=== PATIENT | male | born 1995 ===

== ENCOUNTER 2016-10-10 19:08 | Emergency (ER) | payer BC ==
[2016-10-10 19:29] VITALS: BP 123/70; PULSE 111; RESP 18; TEMP 98.1; O2SAT 98
--- NOTE | 2016-10-10 20:51 | ED PDOC ---
HPI: Back Time Seen by Provider: 10/10/16 19:55 Chief Complaint (Nursing): Back Pain History Per: Patient Additional Complaint(s): Pt. states for the past 3 weeks she's had atraumatic non-radiating neck pain. Reports that on Tuesday pain became worse therefore he went to [facility] [place] he was prescribed Naproxen and Metaloxone which he has taken with moderate relief. Pt. states no diagnostics were performed and is now requesting imaging to be done on his neck. Denies numbness, tingling, fever, headache, rash, trauma, sore throat. 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 Past Medical History Reviewed: Historical Data, Nursing Documentation, Vital Signs Vital Signs: Last Vital Signs Temp 98.1 F 10/10/16 19:23 Pulse 111 H 10/10/16 19:23 Resp 18 10/10/16 19:23 BP 123/70 10/10/16 19:23 Pulse Ox 98 10/10/16 19:23 - Medical History PMH: Asthma, Seizures (no meds) - Family History Family History: States: Unknown Family Hx - Immunization History Hx Tetanus Toxoid Vaccination: No Hx Influenza Vaccination: No Hx Pneumococcal Vaccination: No - Home Medications Home Medications: Ambulatory Orders Medication Instructions Recorded Albuterol HFA [Ventolin HFA 90 200 puff IH PRN PRN 06/09/13 mcg/actuation (8 g)] - Allergies Allergies/Adverse Reactions: Allergies Allergy/AdvReac Type Severity Reaction Status Date / Time Penicillins AdvReac RASH Verified 10/10/16 19:31 shellfish derived AdvReac SHORTNESS Verified 10/10/16 19:31 OF BREATH Review of Systems ROS Statement: Except As Marked, All Systems Reviewed And Found Negative Musculoskeletal: Positive for: Neck Pain Physical Exam - Physical Exam Appears: Positive for: Well, Non-toxic, No Acute Distress Head Exam: Positive for: ATRAUMATIC, NORMAL INSPECTION, NORMOCEPHALIC Skin: Positive for: Normal Color, Warm. Negative for: Rash ENT: Positive for: Normal ENT Inspection. Negative for: Pharyngeal Erythema, Tonsillar Exudate, Tonsillar Swelling Neck: Positive for: Pain On Movement Of Neck Respiratory: Positive for: CNT, Normal Breath Sounds Pulses-Radial (L): 2+ Pulses-Radial (R): 2+ Back: Positive for: Normal Inspection, Muscle Spasm (b/l paracervical muscle spasm). 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 Negative for: Aphasia, Facial Droop - ECG O2 Sat by Pulse Oximetry: 98 - Radiology X-Ray: Interpreted by Me (C-spine x-ray) X-Ray Interpretation: Other (C-spine straightening; no fx) - Progress ED Course And Treament: Toradol 15mg IM given. Pt. is driving home. Pt. informed of x-ray results. Instructed to f/u with pain management physician. Given grocery store clerk information. Told to continue Naproxen and Metaloxone and to apply ice to area 20 mins on and 20 mins off. Disposition - Clinical Impression Clinical Impression: Neck pain - Patient ED Disposition Is Patient to be Admitted: No - Disposition Referrals: Clinical Education Academic Coordinator Service [Outside] Disposition: Routine/Home Disposition Time: 20:50 Condition: STABLE Instructions: Muscle Spasm (ED) Forms: [employer] ([place]), [facility] ED School/Work Excuse Print Language: VIETNAMESE
--- NOTE | 2016-10-11 11:05 | RAD ---
PROCEDURE: Cervical Spine Radiographs. Three views of the cervical spine performed. Note that the examination is somewhat limited due to partial obscuration of the distal tip of the odontoid by overlying occiput in the open-mouth projection HISTORY: Pain. COMPARISON: None. FINDINGS: BONES: No evidence of acute compression fractures no retropulsed fragments. Vertebral bodies exhibit normal stature. . There is straightening of the normal cervical lordosis which could be due to patient positioning in the gantry however underlying element of muscle spasm may contribute. Disc space heights are relatively maintained DISC SPACES: There does appear to be small marginal on posterior osteophyte formation seen at several levels. . SOFT TISSUES: Prevertebral soft tissues unremarkable. OTHER FINDINGS: Questionable unerupted tooth within mandibular symphysis. Followup nonemergent CT scan of the mandible could be performed for further evaluation IMPRESSION: No acute fractures. Questionable unerupted tooth within the mandibular symphysis region. But nonemergent CT scan of the mandible recommended. Note this report was placed in PA review folder for followup.
== END 2016-10-10 22:12 | disposition home or self-care (01) ==
LOC: H.ER 19:08
DX: M54.2 Cervicalgia (principal)
CPT/HCPCS: 72040; 96372; 99281; J1885

== ENCOUNTER 2016-11-06 20:56 | Emergency (ER) | payer BC ==
[2016-11-06 21:07] VITALS: BP 137/73; PULSE 99; TEMP 98.3; O2SAT 98
[2016-11-06 21:23] VITALS: RESP 14
[2016-11-06] MEDS ORDERED: Alum-Mag Hydrox-Simethicone Susp (30 mL) PO STA (21:57)
[2016-11-06] MEDS ORDERED: Sodium Chloride 0.9% 1,000 ML IV STA (21:58)
[2016-11-06 22:34] LABS: HEMOGLOBIN 13.6 g/dL (12.0-18.0); MEAN CELL VOLUME 87.5 fl (80.0-94.0); MEAN CORPUSCULAR HEMOGLOBIN 30.3 pg (27.0-31.0); MEAN CORPUSCULAR HGB CONC 34.6 g/dL (33.0-37.0); RBC 4.49 Mil/uL (4.40-5.90); RED CELL DISTRIBUTION WIDTH 13.1 % (11.5-14.5)
[2016-11-06] MEDS ORDERED: Alum-Mag Hydrox-Simethicone Susp (30 mL) ONE (22:38)
[2016-11-06 22:45] LABS: ALB/GLOB RATIO 1.6 (1.0-2.1); ALBUMIN 4.5 g/dL (3.5-5.0); ALT/SGPT 67 U/L (21-72); AST/SGOT 41 U/L (17-59); BLOOD UREA NITROGEN 14 mg/dl (9-20); CALCIUM 9.8 mg/dL (8.4-10.2); GFR AFRICAN-AMERICAN > 60; GFR NON-AFRICAN AMERICAN > 60
--- NOTE | 2016-11-07 00:15 | ED PDOC ---
HPI: Chest Pain Time Seen by Provider: 11/06/16 21:18 Chief Complaint (Nursing): Shortness Of Breath Chief Complaint (Provider): Chest pain, central and left History Per: Patient History/Exam Limitations: no limitations Onset/Duration Of Symptoms: Days (2) Context: Food Severity: Moderate Pain Scale Rating Of: 5 Quality: Dull Associated Symptoms: denies: Nausea, Dyspnea, Diaphoresis, Syncope Modifying Factors: None Exacerbating Factors: Movement Alleviating Factors: None Additional Complaint(s): Pt states he began having central dull chest pain after eating pork, beans and rice. Pt states he had some cecil eloy last night before bed but it did not help. No fever/chills. PT states today he began having it more left sided in the chest muscle but states that it is still dull in the center area. No medications at home for symptoms. Pt obese with a sedentary life style. 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 Past Medical History Reviewed: Historical Data, Nursing Documentation, Vital Signs Vital Signs: Last Vital Signs Temp 98.3 F 11/06/16 21:02 Pulse 99 H 11/06/16 21:02 Resp 14 11/06/16 21:21 BP 137/73 11/06/16 21:02 Pulse Ox 98 11/06/16 21:02 - Medical History PMH: Asthma, Seizures (no meds) - Surgical History Surgical History: No Surg Hx - Family History Family History: States: Unknown Family Hx - Living Arrangements Living Arrangements: With Family - Social History Current smoker - smoking cessation education provided: No Alcohol: None Drugs: Denies - Immunization History Hx Tetanus Toxoid Vaccination: No Hx Influenza Vaccination: No Hx Pneumococcal Vaccination: No - Home Medications Home Medications: Ambulatory Orders Medication Instructions Recorded Albuterol HFA [Ventolin HFA 90 200 puff IH PRN PRN 06/09/13 mcg/actuation (8 g)] Cyclobenzaprine [Cyclobenzaprine 10 mg PO Q8H PRN #12 tab 11/07/16 HCl] Famotidine [Pepcid] 20 mg PO BID #28 tab 11/07/16 - Allergies Allergies/Adverse Reactions: Allergies Allergy/AdvReac Type Severity Reaction Status Date / Time Penicillins AdvReac RASH Verified 10/10/16 19:31 shellfish derived AdvReac SHORTNESS Verified 10/10/16 19:31 OF BREATH LITO Risk Score for UA/NSTEMI - LITO Risk Score Age > 64: NO 3 or more CAD Risk Factors: NO Known CAD (Stenosis greater than 50%): NO Aspirin use in past 7 days: NO Severe Angina: NO EKG ST changes greater than 0.5mm: NO Positive Cardiac Marker: NO LITO Score: 0 Risk %: 5% Curb-65 Severity Score - CURB-65 Severity Score Confusion: No Bun >19mg/dl (>7mmol/L): No Respiratory Rate greater than/equal to 30: No Systolic BP <90 or Diastolic BP less than/equal 60mmHg: No Age >64: No Curb-65 Score: 0 Percentage 30-day mortality: 0.6% Review of Systems ROS Statement: Except As Marked, All Systems Reviewed And Found Negative Constitutional: Negative for: Fever, Chills Cardiovascular: Positive for: Chest Pain. Negative for: Orthopnea, Edema, Light Headedness Respiratory: Negative for: Shortness of Breath Gastrointestinal: Negative for: Nausea, Vomiting, Abdominal Pain Physical Exam - Reviewed Nursing Documentation Reviewed: Yes Vital Signs Reviewed: Yes - Physical Exam Appears: Positive for: Well, Non-toxic, No Acute Distress Head Exam: Positive for: ATRAUMATIC, NORMAL INSPECTION, NORMOCEPHALIC Skin: Positive for: Normal Color, Warm, DRY Eye Exam: Positive for: Normal appearance ENT: Positive for: Normal ENT Inspection Neck: Positive for: Normal, Painless ROM Cardiovascular/Chest: Positive for: Regular Rate, Rhythm. Negative for: Chest Non Tender (Left sided tenderness ) Respiratory: Positive for: Normal Breath Sounds. Negative for: Accessory Muscle Use, Respiratory Distress Gastrointestinal/Abdominal: Positive for: Normal Exam, Bowel Sounds, Soft. Negative for: Tenderness Back: Positive for: Normal Inspection Extremity: Positive for: Normal ROM Neurologic/Psych: Positive for: Alert, Oriented - Laboratory Results Result Diagrams: 11/06/16 22:30 11/06/16 22:30 - ECG O2 Sat by Pulse Oximetry: 98 Medical Decision Making Medical Decision Making: Pt reports feeling much better after pepcid and mylanta. Pt states has left chest wall tenderness. Discussed heartburn and muscle pain with patient. Disposition - Clinical Impression Clinical Impression: Non-cardiac chest pain - Patient ED Disposition Is Patient to be Admitted: No Counseled Patient/Family Regarding: Diagnosis, Need For Followup - Disposition Disposition: Routine/Home Disposition Time: 00:10 Condition: GOOD Prescriptions: Cyclobenzaprine [Cyclobenzaprine HCl] 10 mg PO Q8H PRN #12 tab PRN Reason: Muscle Spasm Famotidine [Pepcid] 20 mg PO BID #28 tab Instructions: Noncardiac Chest Pain (ED)
--- NOTE | 2016-11-07 07:29 | RAD ---
HISTORY: Left sided chest pain COMPARISON: No prior. TECHNIQUE: Chest PA and lateral FINDINGS: LUNGS: No active pulmonary disease. PLEURA: No significant pleural effusion identified. No pneumothorax apparent. CARDIOVASCULAR: Normal. OSSEOUS STRUCTURES: No significant abnormalities. VISUALIZED UPPER ABDOMEN: Normal. OTHER FINDINGS: None. IMPRESSION: No active disease.
--- NOTE | 2016-11-07 12:58 | CARD ---
APPROVED REPORT EKG Measurement Heart [id number] <Conclusion> Normal sinus rhythm Normal ECG
== END 2016-11-07 00:47 | disposition home or self-care (01) ==
LOC: H.ER 20:56
DX: R12 Heartburn (principal); R07.89 Other chest pain; J45.909 Unspecified asthma, uncomplicated; Z88.0 Allergy status to penicillin
CPT/HCPCS: 71020; 80053; 84484; 85027; 85378; 93005; 96360; 99283; J7040

== ENCOUNTER 2016-12-20 19:04 | Emergency (ER) | payer BC ==
[2016-12-20 19:45] VITALS: PULSE 75; RESP 16; TEMP 98.2
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
[2016-12-20 20:32] LABS: ABG ALLEN TEST YES; ARTERIAL BLOOD GAS HCO3 26.1 mmol/L (21-28); ARTERIAL BLOOD GAS PH 7.43 (7.35-7.45); ARTERIAL BLOOD GAS PO2 78 mm/Hg (80-100)
[2016-12-20 21:46] VITALS: BP 125/80; O2SAT 100
--- NOTE | 2016-12-21 08:11 | CARD ---
APPROVED REPORT EKG Measurement Heart [id number] VT [id number] [id number] <Conclusion> Normal sinus rhythm with sinus arrhythmia Normal ECG
--- NOTE | 2016-12-21 13:39 | RAD ---
PROCEDURE: Radiographs of the pelvis. HISTORY: Pain. No history of recent/ related trauma provided COMPARISON: None. FINDINGS: BONES: Pelvic Bones: Unremarkable. Hips: Grossly unremarkable. JOINTS: Sacroiliac Joints: Unremarkable. Pubic Symphysis: Unremarkable. OTHER FINDINGS: None. IMPRESSION: No acute findings related to/accounting for the clinical presentation. Limitations of the current examination: AP view only.
--- NOTE | 2016-12-21 16:02 | RAD ---
PROCEDURE: Radiographs of the Lumbar Spine. HISTORY: ER ORDER COMPARISON: No prior. FINDINGS: BONES: Alignment appears satisfactory. No listhesis. No acute displaced fracture identified. DISC SPACES: Unremarkable. OTHER FINDINGS: None. IMPRESSION: No acute displaced fracture or subluxation identified.
== END 2016-12-20 21:47 | disposition home or self-care (01) ==
LOC: H.ER 19:04
DX: J70.5 Respiratory conditions due to smoke inhalation (principal); T59.811A Toxic effect of smoke, accidental (unintentional), initial encounter; J45.909 Unspecified asthma, uncomplicated; Z88.0 Allergy status to penicillin

== ENCOUNTER 2017-01-05 18:35 | Emergency (ER) | payer BC ==
[2017-01-05 18:55] VITALS: BP 157/94; PULSE 113; RESP 16; TEMP 99.4; O2SAT 98
[2017-01-05] MEDS ORDERED: Albuterol-Ipratrop 3 mg / 0.5 (3 ml) UD INH STA (19:25)
[2017-01-05] MEDS ORDERED: Albuterol-Ipratrop 3 mg / 0.5 (3 ml) UD ONE (19:32)
--- NOTE | 2017-01-05 19:32 | ED PDOC ---
HPI: CCC, URI, Sore Throat Time Seen by Provider: 01/05/17 19:14 Chief Complaint (Nursing): Cough, Cold, Congestion History Per: Patient History/Exam Limitations: no limitations Onset/Duration Of Symptoms: Days (3) Additional Complaint(s): Patient is a 21 y/o male with a past medical history of asthma presenting to the emergency department for a productive cough ongoing for 3 days with associated intermittent shortness of breath. Notes that he may have had a fever , stating that he felt "steaming" warmth from his neck up and "ice cold" from neck down. Denies pain, injuries, recent travel, or other complaints. PCP: none provided. Past Medical History Reviewed: Historical Data, Nursing Documentation, Vital Signs Vital Signs: Last Vital Signs Temp 99.4 F 01/05/17 18:51 Pulse 113 H 01/05/17 18:51 Resp 16 01/05/17 18:51 BP 157/94 H 01/05/17 18:51 Pulse Ox 98 01/05/17 19:35 - Medical History PMH: Asthma, Seizures (no meds) - Surgical History Other surgeries: Ankle surgery - Family History Family History: States: Unknown Family Hx - Social History Current smoker - smoking cessation education provided: No Ex-Smoker (has not smoked in the last 12 months): No Alcohol: Social Drugs: Denies - Immunization History Hx Tetanus Toxoid Vaccination: No Hx Influenza Vaccination: No Hx Pneumococcal Vaccination: No - Home Medications Home Medications: Ambulatory Orders Medication Instructions Recorded Albuterol HFA [Ventolin HFA 90 200 puff IH PRN PRN 06/09/13 mcg/actuation (8 g)] Cyclobenzaprine [Cyclobenzaprine 10 mg PO Q8H PRN #12 tab 11/07/16 HCl] Famotidine [Pepcid] 20 mg PO BID #28 tab 11/07/16 Albuterol HFA [Ventolin HFA 90 1 puff IH BID PRN #1 unit 01/05/17 mcg/actuation (8 g)] Azithromycin [Zithromax] 250 mg PO DAILY #6 tab 01/05/17 - Allergies Allergies/Adverse Reactions: Allergies Allergy/AdvReac Type Severity Reaction Status Date / Time Penicillins AdvReac RASH Verified 01/05/17 18:50 shellfish derived AdvReac SHORTNESS Verified 01/05/17 18:50 OF BREATH Review of Systems ROS Statement: Except As Marked, All Systems Reviewed And Found Negative Constitutional: Positive for: Fever (subjective) Respiratory: Positive for: Cough, Shortness of Breath, Sputum Physical Exam - Reviewed Nursing Documentation Reviewed: Yes Vital Signs Reviewed: Yes - Physical Exam Appears: Positive for: Well, Non-toxic, No Acute Distress Head Exam: Positive for: ATRAUMATIC, NORMAL INSPECTION, NORMOCEPHALIC Skin: Positive for: Normal Color, Warm, Dry Eye Exam: Positive for: Normal appearance ENT: Positive for: Normal ENT Inspection Neck: Positive for: Normal Extremity: Positive for: Normal ROM Neurologic/Psych: Positive for: Alert, Oriented (x3) - ECG O2 Sat by Pulse Oximetry: 98 (RA) Pulse Ox Interpretation: Normal Medical Decision Making Medical Decision Making: Time: 19:25 Initial impression: Cough Initial plan: Chest X-ray Albuterol 3 mL INH Peak flow assessment pre and post treatment CXR - Normal Scribe Attestation: Documented by Gale Felix, acting as a scribe for KAEL Maher. Provider Scribe Attestation: All medical record entries made by the Scribe were at my direction and personally dictated by me. I have reviewed the chart and agree that the record accurately reflects my personal performance of the history, physical exam, medical decision making, and the department course for this patient. I have also personally directed, reviewed, and agree with the discharge instructions and disposition. Disposition - Clinical Impression Clinical Impression: Cough - Patient ED Disposition Is Patient to be Admitted: No Counseled Patient/Family Regarding: Diagnosis, Need For Followup - Disposition Disposition: Routine/Home Disposition Time: 20:47 Condition: GOOD Prescriptions: Albuterol HFA [Ventolin HFA 90 mcg/actuation (8 g)] 1 puff IH BID PRN #1 unit PRN Reason: Wheezing Azithromycin [Zithromax] 250 mg PO DAILY #6 tab Instructions: Acute Cough (ED) Forms: [employer] ([place])
--- NOTE | 2017-01-06 09:33 | RAD ---
HISTORY: SOB, cough x 3 days COMPARISON: 11/06/2016 TECHNIQUE: Chest PA and lateral FINDINGS: LUNGS: No active pulmonary disease. PLEURA: No significant pleural effusion identified. No pneumothorax apparent. CARDIOVASCULAR: Normal. OSSEOUS STRUCTURES: No significant abnormalities. VISUALIZED UPPER ABDOMEN: Normal. OTHER FINDINGS: None. IMPRESSION: No active disease.
== END 2017-01-05 21:22 | disposition home or self-care (01) ==
LOC: H.ER 18:35
DX: R05 Cough (principal); R06.2 Wheezing

== ENCOUNTER 2017-10-21 20:06 | Emergency (ER) | payer BC ==
[2017-10-21 20:06] VITALS: BMI 45.8
[2017-10-21 20:16] VITALS: TEMP 98.4; O2SAT 97
[2017-10-21] MEDS ORDERED: Albuterol-Ipratrop 3 mg / 0.5 (3 ml) UD INH STA (20:55)
[2017-10-21] MEDS ORDERED: Albuterol-Ipratrop 3 mg / 0.5 (3 ml) UD ONE (21:02)
--- NOTE | 2017-10-21 21:27 | ED PDOC ---
HPI: SOB/CHF/COPD Time Seen by Provider: 10/21/17 20:23 Chief Complaint (Nursing): Shortness Of Breath Chief Complaint (Provider): Cough, shortness of breath History Per: Patient History/Exam Limitations: no limitations Onset/Duration Of Symptoms: Persistent Current Symptoms Are (Timing): Still Present Additional History Per: Patient Additional Complaint(s): 22yo male, with history of asthma, comes to ER for evaluation of cough and shortness of breath x 1 month. Patient states cough is productive with occasional blood tinged phlegm; he reports associated sore throat but denies any rhinorrhea. Patient has been using Albuterol frequently for the past 3 weeks with no relief. He reports presenting today because of worsening shortness of breath, cough, and difficulty sleeping secondary to the cough. He denies any fever, vomiting or diarrhea. PMD: Dr. Hagen Past Medical History Reviewed: Historical Data, Nursing Documentation, Vital Signs Vital Signs: Last Vital Signs Temp 98.4 F 10/21/17 20:12 Pulse 93 H 10/21/17 20:12 Resp 14 10/21/17 20:12 BP 125/80 10/21/17 20:12 Pulse Ox 97 10/21/17 21:36 - Medical History PMH: Asthma, Seizures (no meds) - Surgical History Other surgeries: left ankle surgery - Family History Family History: States: Unknown Family Hx - Social History Current smoker - smoking cessation education provided: No Alcohol: Social Drugs: Denies - Immunization History Hx Tetanus Toxoid Vaccination: No Hx Influenza Vaccination: No Hx Pneumococcal Vaccination: No - Home Medications Home Medications: Ambulatory Orders Medication Instructions Recorded Albuterol HFA [Ventolin HFA 90 200 puff IH PRN PRN 06/09/13 mcg/actuation (8 g)] Cyclobenzaprine [Cyclobenzaprine 10 mg PO Q8H PRN #12 tab 11/07/16 HCl] Famotidine [Pepcid] 20 mg PO BID #28 tab 11/07/16 Albuterol HFA [Ventolin HFA 90 1 puff IH BID PRN #1 unit 01/05/17 mcg/actuation (8 g)] Azithromycin [Zithromax] 250 mg PO DAILY #6 tab 01/05/17 Loperamide [Loperamide HCl] 2 mg PO QID PRN #12 cap 01/27/17 Albuterol HFA [Ventolin HFA 90 2 puff IH Q4H PRN #1 inh 10/21/17 mcg/actuation (8 g)] Azithromycin [Zithromax] 250 mg PO DAILY #6 dose 10/21/17 Prednisone 50 mg PO DAILY #4 tablet 10/21/17 - Allergies Allergies/Adverse Reactions: Allergies Allergy/AdvReac Type Severity Reaction Status Date / Time Penicillins AdvReac RASH Verified 10/21/17 20:12 shellfish derived AdvReac SHORTNESS Verified 10/21/17 20:12 OF BREATH Review of Systems ROS Statement: Except As Marked, All Systems Reviewed And Found Negative (as per HPI) Constitutional: Negative for: Fever, Chills Respiratory: Positive for: Cough, Shortness of Breath, SOB with Exertion, Sputum Gastrointestinal: Negative for: Vomiting, Diarrhea Physical Exam - Reviewed Nursing Documentation Reviewed: Yes Vital Signs Reviewed: Yes - Physical Exam Appears: Positive for: Non-toxic, No Acute Distress Head Exam: Positive for: ATRAUMATIC, NORMOCEPHALIC Skin: Positive for: Warm, Dry Eye Exam: Positive for: EOMI, PERRL ENT: Negative for: Pharyngeal Erythema, Tonsillar Exudate Neck: Positive for: Painless ROM, Supple Cardiovascular/Chest: Positive for: Tachycardia (+regular rhythm). Negative for : Murmur Respiratory: Positive for: Wheezing (end expitory wheeze), Other (speaking full sentences; +spasmostic cough). Negative for: Accessory Muscle Use, Respiratory Distress Gastrointestinal/Abdominal: Positive for: Soft. Negative for: Tenderness Back: Positive for: Normal Inspection. Negative for: Decreased ROM Extremity: Negative for: Pedal Edema, Calf Tenderness Lymphatic: Negative for: Adenopathy Neurologic/Psych: Positive for: Alert, Oriented. Negative for: Motor/Sensory Deficits - Laboratory Results Result Diagrams: 10/21/17 21:31 10/21/17 21:31 - ECG O2 Sat by Pulse Oximetry: 97 (RA) Pulse Ox Interpretation: Normal - Radiology X-Ray: Interpreted by Me (Peribronchial thickening, no effusion, no inf) Medical Decision Making Medical Decision Making: Impression: Cough, shortness of breath Differential: Including but not limited to asthma exacerbation, pneumonia, bronchitis, pulmonary embolism, CHF Plan: -- EKG -- Labs -- Chest x-ray -- Duonebm 9ml INH -- Solumedrol 125mg IV Labs unremarkable CXR with peribronchial thickening. Improved on discharge. Scribe Attestation: Documented by Nadine Ramsey, acting as a scribe for Beverley Valentin MD. Provider Scribe Attestation: All medical record entries made by the Scribe were at my direction and personally dictated by me. I have reviewed the chart and agree that the record accurately reflects my personal performance of the history, physical exam, medical decision making, and the department course for this patient. I have also personally directed, reviewed, and agree with the discharge instructions and disposition. Disposition - Clinical Impression Clinical Impression: Bronchitis, Asthma exacerbation - Disposition Referrals: Corinne Joseph MD [Staff Provider] - 10/24/17 Disposition: Routine/Home Disposition Time: 22:00 Condition: IMPROVED Prescriptions: Albuterol HFA [Ventolin HFA 90 mcg/actuation (8 g)] 2 puff IH Q4H PRN #1 inh PRN Reason: ASTHMA Azithromycin [Zithromax] 250 mg PO DAILY #6 dose Prednisone 50 mg PO DAILY #4 tablet Instructions: Asthma, Adult (DC), Acute Bronchitis Forms: [facility] (Lithuanian)
[2017-10-21 21:35] LABS: BASO # 0.1 K/uL (0.0-0.2); BASO % 0.6 % (0.0-2.0); EOS # 0.3 K/uL (0.0-0.7); EOS % 2.9 % (0.0-4.0); HEMOGLOBIN 14.1 g/dL (12.0-18.0); LYMPH # 3.2 K/uL (1.0-4.3); LYMPH % 28.9 % (20.0-40.0); MEAN CELL VOLUME 87.4 fl (80.0-94.0); MEAN CORPUSCULAR HEMOGLOBIN 30.3 pg (27.0-31.0); MEAN CORPUSCULAR HGB CONC 34.7 g/dL (33.0-37.0); MEAN PLATELET VOLUME 8.6 fl (7.2-11.7); MONO # 0.7 K/uL (0.0-0.8); MONO % 6.2 % (0.0-10.0); NEUT # 6.9 K/uL (1.8-7.0); NEUT % 61.4 % (50.0-75.0); RBC 4.66 Mil/uL (4.40-5.90); RED CELL DISTRIBUTION WIDTH 13.3 % (11.5-14.5); WHITE BLOOD COUNT 11.2 K/uL (4.8-10.8)
[2017-10-21 22:06] LABS: ALB/GLOB RATIO 1.6 (1.0-2.1); ALBUMIN 4.6 g/dL (3.5-5.0); ALT/SGPT 59 U/L (21-72); AST/SGOT 40 U/L (17-59); B-TYPE NATRIURETIC PEPTIDE 36.7 pg/ml (0-450); BLOOD UREA NITROGEN 14 mg/dl (9-20); CALCIUM 9.5 mg/dL (8.4-10.2); GFR AFRICAN-AMERICAN > 60; GFR NON-AFRICAN AMERICAN > 60
[2017-10-22 00:35] VITALS: BP 138/74; PULSE 92; RESP 17
--- NOTE | 2017-10-22 13:46 | CARD ---
APPROVED REPORT Date of service: 10/21/2017 EKG Measurement Heart [id number] <Conclusion> Normal sinus rhythm Moderate voltage criteria for LVH, may be normal variant Borderline ECG
--- NOTE | 2017-10-22 15:33 | RAD ---
Date of service: 10/21/2017 HISTORY: sob cough cp COMPARISON: 01/05/2017 TECHNIQUE: Chest PA and lateral FINDINGS: LUNGS: No active pulmonary disease. PLEURA: No significant pleural effusion identified. No pneumothorax apparent. CARDIOVASCULAR: Normal. OSSEOUS STRUCTURES: No significant abnormalities. VISUALIZED UPPER ABDOMEN: Normal. OTHER FINDINGS: None. IMPRESSION: No active disease.
== END 2017-10-21 23:08 | disposition home or self-care (01) ==
LOC: H.ER 20:06
DX: J45.901 Unspecified asthma with (acute) exacerbation (principal); J44.9 Chronic obstructive pulmonary disease, unspecified; Z88.0 Allergy status to penicillin
CPT/HCPCS: 71046; 80053; 83880; 84484; 85025; 85378; 87040; 93005; 94150; 94640; 96374; 99284; J2930

== ENCOUNTER 2017-12-30 21:12 | Emergency (ER) | payer BC ==
[2017-12-30 21:12] VITALS: BMI 45.8
[2017-12-30 21:43] VITALS: BP 133/101; PULSE 90; RESP 18; TEMP 99.2; O2SAT 98
[2017-12-30] MEDS ORDERED: Sodium Chloride 0.9% 1,000 ML IV STA (22:44)
--- NOTE | 2017-12-30 22:45 | ED PDOC ---
HPI: Abdomen Time Seen by Provider: 12/30/17 22:15 Chief Complaint (Nursing): Abdominal Pain Chief Complaint (Provider): left lower abdominal pain History Per: Patient (22 y/o male here with lower abd pain x 3 days left lower quadrant associated with constipation. Notes dark urine on initial episode of abd pain. Denies any fevers/chills.) Past Medical History Reviewed: Historical Data, Nursing Documentation, Vital Signs Vital Signs: Last Vital Signs Temp 99.2 F 12/30/17 21:36 Pulse 90 12/30/17 21:36 Resp 18 12/30/17 21:36 BP 133/101 H 12/30/17 21:36 Pulse Ox 98 12/30/17 21:36 - Medical History PMH: Asthma, Seizures (no meds) - Family History Family History: States: Unknown Family Hx - Immunization History Hx Tetanus Toxoid Vaccination: No Hx Influenza Vaccination: No Hx Pneumococcal Vaccination: No - Home Medications Home Medications: Ambulatory Orders Medication Instructions Recorded Albuterol HFA [Ventolin HFA 90 200 puff IH PRN PRN 06/09/13 mcg/actuation (8 g)] Cyclobenzaprine [Cyclobenzaprine 10 mg PO Q8H PRN #12 tab 11/07/16 HCl] Famotidine [Pepcid] 20 mg PO BID #28 tab 11/07/16 Albuterol HFA [Ventolin HFA 90 1 puff IH BID PRN #1 unit 01/05/17 mcg/actuation (8 g)] Azithromycin [Zithromax] 250 mg PO DAILY #6 tab 01/05/17 Loperamide [Loperamide HCl] 2 mg PO QID PRN #12 cap 01/27/17 Albuterol HFA [Ventolin HFA 90 2 puff IH Q4H PRN #1 inh 10/21/17 mcg/actuation (8 g)] Azithromycin [Zithromax] 250 mg PO DAILY #6 dose 10/21/17 Prednisone 50 mg PO DAILY #4 tablet 10/21/17 Ibuprofen [Motrin] 600 mg PO Q8 PRN #21 tab 12/31/17 - Allergies Allergies/Adverse Reactions: Allergies Allergy/AdvReac Type Severity Reaction Status Date / Time Penicillins AdvReac RASH Verified 10/21/17 20:12 shellfish derived AdvReac SHORTNESS Verified 10/21/17 20:12 OF BREATH Review of Systems ROS Statement: Except As Marked, All Systems Reviewed And Found Negative Physical Exam - Reviewed Nursing Documentation Reviewed: Yes Vital Signs Reviewed: Yes - Physical Exam Appears: Positive for: Well, Non-toxic, No Acute Distress Head Exam: Positive for: ATRAUMATIC, NORMAL INSPECTION, NORMOCEPHALIC Skin: Positive for: Normal Color, Warm, DRY Eye Exam: Positive for: EOMI, Normal appearance, PERRL ENT: Positive for: Normal ENT Inspection Neck: Positive for: Normal, Painless ROM Cardiovascular/Chest: Positive for: Regular Rate, Rhythm Respiratory: Positive for: CNT, Normal Breath Sounds Gastrointestinal/Abdominal: Positive for: Normal Exam, Soft Back: Positive for: Normal Inspection Extremity: Positive for: Normal ROM Neurologic/Psych: Positive for: Alert, Oriented - Laboratory Results Result Diagrams: 12/31/17 00:02 12/31/17 00:02 - ECG O2 Sat by Pulse Oximetry: 98 - Progress ED Course And Treament: ns [address] abd/pelvis: appendagitis. Disposition - Clinical Impression Clinical Impression: Epiploic appendagitis - Patient ED Disposition Is Patient to be Admitted: No - Disposition Disposition: Routine/Home Disposition Time: 03:12 Condition: FAIR Prescriptions: Ibuprofen [Motrin] 600 mg PO Q8 PRN #21 tab PRN Reason: Pain, Moderate (4-7) Instructions: Acute Abdomen (Belly Pain)
[2017-12-31 00:59] LABS: SQUAMOUS EPITHIAL 2 /hpf (0-5); URINE BACTERIA RARE (<OCC); URINE BILIRUBIN NEGATIVE (NEGATIVE); URINE BLOOD SMALL (NEGATIVE); URINE CLARITY SLIGHTY-CLOUDY (Clear); URINE COLOR YELLOW (YELLOW); URINE GLUCOSE (UA) NEG (Normal); URINE LEUKOCYTE ESTERASE NEG Leu/uL (Negative); URINE PROTEIN NEGATIVE (NEGATIVE); URINE UROBILINOGEN 0.2-1.0 mg/dL (0.2-1.0)
[2017-12-31 01:02] LABS: BASO % 0.4 % (0.0-2.0); EOS # 0.2 K/uL (0.0-0.7); EOS % 2.2 % (0.0-4.0); HEMOGLOBIN 14.6 g/dL (12.0-18.0); LYMPH % 43.1 % (20.0-40.0); MEAN CELL VOLUME 88.5 fl (80.0-94.0); MEAN CORPUSCULAR HEMOGLOBIN 30.3 pg (27.0-31.0); MEAN CORPUSCULAR HGB CONC 34.2 g/dL (33.0-37.0); MEAN PLATELET VOLUME 8.9 fl (7.2-11.7); MONO # 0.5 K/uL (0.0-0.8); MONO % 5.2 % (0.0-10.0); NEUT # 4.5 K/uL (1.8-7.0); NEUT % 49.1 % (50.0-75.0); RBC 4.81 Mil/uL (4.40-5.90); WHITE BLOOD COUNT 9.2 K/uL (4.8-10.8)
[2017-12-31 01:10] LABS: ALB/GLOB RATIO 1.4 (1.0-2.1); ALBUMIN 4.7 g/dL (3.5-5.0); ALT/SGPT 58 U/L (21-72); AST/SGOT 44 U/L (17-59); BLOOD UREA NITROGEN 13 mg/dl (9-20); CALCIUM 9.8 mg/dL (8.4-10.2); GFR NON-AFRICAN AMERICAN > 60
--- NOTE | 2017-12-31 11:27 | CT ---
Date of service: 12/31/2017 PROCEDURE: CT Abdomen and Pelvis without intravenous contrast HISTORY: r/o kidney stone left flank COMPARISON: None. TECHNIQUE: Contiguous images were obtained from the domes of the diaphragms to the upper thighs without the administration of intravenous contrast. Oral contrast was not administered. Radiation dose: Total exam DLP = 963.8 mGy-cm. This CT exam was performed using one or more of the following dose reduction techniques: Automated exposure control, adjustment of the mA and/or kV according to patient size, and/or use of iterative reconstruction technique. FINDINGS: LOWER THORAX: Unremarkable. LIVER: Unremarkable. No gross lesion or ductal dilatation. GALLBLADDER AND BILE DUCTS: Unremarkable. PANCREAS: Unremarkable. No gross lesion or ductal dilatation. SPLEEN: Unremarkable. ADRENALS: Unremarkable. No mass. KIDNEYS AND URETERS: Unremarkable. No hydronephrosis. No solid mass. VASCULATURE: Unremarkable. No aortic aneurysm. BOWEL: Unremarkable. No obstruction. No gross mural thickening. APPENDIX: Unremarkable. Normal appendix. PERITONEUM: Left lower quadrant pole shaped area of high density with internal low density and surrounding inflammatory change. No free fluid. No free air. LYMPH NODES: Unremarkable. No enlarged lymph nodes. BLADDER: Unremarkable. REPRODUCTIVE: Unremarkable. BONES: No acute fracture. OTHER FINDINGS: None. IMPRESSION: Left lower quadrant epiploic appendagitis. No urolithiasis or evidence of recently passed genitourinary calculus.
== END 2017-12-31 03:53 | disposition home or self-care (01) ==
LOC: H.ER 21:12
DX: Q43.8 Other specified congenital malformations of intestine (principal); K59.00 Constipation, unspecified; Z88.0 Allergy status to penicillin

== ENCOUNTER 2018-02-13 18:43 | Emergency (ER) | payer BC ==
[2018-02-13 18:43] VITALS: BMI 45.8
[2018-02-13 18:56] VITALS: O2SAT 98
[2018-02-13 19:53] LABS: BASO % 0.4 % (0.0-2.0); EOS # 0.1 K/uL (0.0-0.7); EOS % 2.1 % (0.0-4.0); HEMOGLOBIN 14.5 g/dL (12.0-18.0); LYMPH # 2.3 K/uL (1.0-4.3); LYMPH % 33.8 % (20.0-40.0); MEAN CELL VOLUME 88.5 fl (80.0-94.0); MEAN CORPUSCULAR HEMOGLOBIN 29.7 pg (27.0-31.0); MEAN CORPUSCULAR HGB CONC 33.5 g/dL (33.0-37.0); MEAN PLATELET VOLUME 8.7 fl (7.2-11.7); MONO # 0.5 K/uL (0.0-0.8); MONO % 7.2 % (0.0-10.0); NEUT # 3.9 K/uL (1.8-7.0); NEUT % 56.5 % (50.0-75.0); NRBC % 0.1 % (0.0-0.0); RBC 4.89 Mil/uL (4.40-5.90); RED CELL DISTRIBUTION WIDTH 13.3 % (11.5-14.5); WHITE BLOOD COUNT 6.8 K/uL (4.8-10.8)
--- NOTE | 2018-02-13 20:16 | ED PDOC ---
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 Patient reports he had an episode while driving of what he described as his heart thumping which was followed by a split second episode of blacking out. At the time, he was able to hide puller and change driers with his who was with him. He denies LOC or any initial shortness of breath. Patient states he also floaters but all symptoms have resolved since arrival to ED. He also reports intermittent calf pain for the past few weeks. Patient is denying any stressors or anxiety but reports he spent the better part of his day at the doctors for his fatty liver. PMD: Corinne Past Medical History Reviewed: Historical Data, Nursing Documentation, Vital Signs Vital Signs: Last Vital Signs Temp 98.3 F 02/13/18 18:54 Pulse 102 H 02/13/18 18:54 Resp 22 02/13/18 18:54 BP 139/81 02/13/18 18:54 Pulse Ox 98 02/13/18 18:54 - Medical History PMH: Asthma, Hypercholesterolemia, Seizures (no meds) Other PMH: fatty liver - Family History Family History: States: Unknown Family Hx - Social History Current smoker - smoking cessation education provided: No Ex-Smoker (has not smoked in the last 12 months): No Alcohol: None Drugs: Denies - Immunization History Hx Tetanus Toxoid Vaccination: No Hx Influenza Vaccination: No Hx Pneumococcal Vaccination: No - Home Medications Home Medications: Ambulatory Orders Medication Instructions Recorded Albuterol HFA [Ventolin HFA 90 200 puff IH PRN PRN 06/09/13 mcg/actuation (8 g)] Cyclobenzaprine [Cyclobenzaprine 10 mg PO Q8H PRN #12 tab 11/07/16 HCl] Famotidine [Pepcid] 20 mg PO BID #28 tab 11/07/16 Albuterol HFA [Ventolin HFA 90 1 puff IH BID PRN #1 unit 01/05/17 mcg/actuation (8 g)] Azithromycin [Zithromax] 250 mg PO DAILY #6 tab 01/05/17 Loperamide [Loperamide HCl] 2 mg PO QID PRN #12 cap 01/27/17 Albuterol HFA [Ventolin HFA 90 2 puff IH Q4H PRN #1 inh 10/21/17 mcg/actuation (8 g)] Azithromycin [Zithromax] 250 mg PO DAILY #6 dose 10/21/17 Prednisone 50 mg PO DAILY #4 tablet 10/21/17 Ibuprofen [Motrin] 600 mg PO Q8 PRN #21 tab 12/31/17 - Allergies Allergies/Adverse Reactions: Allergies Allergy/AdvReac Type Severity Reaction Status Date / Time Penicillins AdvReac RASH Verified 10/21/17 20:12 shellfish derived AdvReac SHORTNESS Verified 10/21/17 20:12 OF BREATH Review of Systems ROS Statement: Except As Marked, All Systems Reviewed And Found Negative Cardiovascular: Positive for: Palpitations Neurological: Positive for: Other (lightheadedness) Physical Exam - Reviewed Nursing Documentation Reviewed: Yes Vital Signs Reviewed: Yes - Physical Exam Appears: Positive for: No Acute Distress (obese) Head Exam: Positive for: ATRAUMATIC, NORMOCEPHALIC Skin: Positive for: Normal Color, Warm, Dry Eye Exam: Positive for: Normal appearance, EOMI, PERRL Cardiovascular/Chest: Positive for: Regular Rate, Rhythm. Negative for: Murmur Respiratory: Positive for: Normal Breath Sounds. Negative for: Respiratory Distress Gastrointestinal/Abdominal: Positive for: Normal Exam, Soft. Negative for: Tenderness Extremity: Positive for: Normal ROM (upper and lower). Negative for: Pedal Edema, Deformity Neurologic/Psych: Positive for: Alert, Oriented (x3) - Laboratory Results Result Diagrams: 02/13/18 19:49 02/13/18 22:46 - ECG O2 Sat by Pulse Oximetry: 98 (RA) Pulse Ox Interpretation: Normal Medical Decision Making Medical Decision Making: Time: 1916 Initial Impression: 22 yo with palpitations and near syncopal episode Initial Plan: --Labs --EKG --Head CT --Venous Doppler 21:39 Doppler US FINDINGS: DEEP VEINS: The common femoral, superficial femoral, and popliteal veins are echolucent and compressible. There is normal color Doppler flow throughout. The visualized calf veins appear patent. SUPERFICIAL VEINS: The visualized greater saphenous vein is patent. SOFT TISSUES: No popliteal fossa cyst or other abnormalities. IMPRESSION: No deep venous thrombosis evident on bilateral lower extremity examination. 21:[address] FINDINGS: BRAIN No acute intraparenchymal hemorrhage. No mass lesion. No CT evidence for acute territorial infarct. No midline shift or extra-axial collections. VENTRICLES: No hydrocephalus. ORBITS: The orbits are unremarkable. SINUSES AND MASTOIDS: The paranasal sinuses and mastoid air cells are clear. BONES: No fracture. SOFT TISSUES: Unremarkable. IMPRESSION: No acute intracranial abnormality. 23:40 Patient is stable for discharge home. Diagnosis is anxiety and palpitations. Patient was advised to follow up with PMD. Scribe Attestation: Documented by Mitzi Uriarte, acting as a scribe for Mp Herron MD Provider Scribe Attestation: All medical record entries made by the Scribe were at my direction and personally dictated by me. I have reviewed the chart and agree that the record accurately reflects my personal performance of the history, physical exam, medical decision making, and the department course for this patient. I have also personally directed, reviewed, and agree with the discharge instructions and disposition. Disposition - Clinical Impression Clinical Impression: Palpitations, Anxiety - Patient ED Disposition Is Patient to be Admitted: No - Disposition Disposition: Routine/Home Disposition Time: 23:40 Condition: STABLE Instructions: Palpitations, Anxiety, Adult (DC) Forms: [employer] (Pakistani)
[2018-02-13 23:04] LABS: ALB/GLOB RATIO 1.5 (1.0-2.1); ALBUMIN 4.7 g/dL (3.5-5.0); ALT/SGPT 62 U/L (21-72); AST/SGOT 47 U/L (17-59); BLOOD UREA NITROGEN 13 mg/dl (9-20); GFR NON-AFRICAN AMERICAN > 60
[2018-02-13 23:15] LABS: BARBITURATES, UR NEGATIVE (NEGATIVE); BENZODIAZEPINES, UR NEGATIVE (NEGATIVE); OPIATES, UR NEGATIVE (NEGATIVE); PHENCYCLIDINE, UR NEGATIVE (NEGATIVE)
[2018-02-14 06:11] VITALS: BP 118/73; PULSE 84; RESP 16; TEMP 98.2
--- NOTE | 2018-02-14 06:46 | CARD ---
APPROVED REPORT Date of service: 02/13/2018 EKG Measurement Heart [id number] <Conclusion> Sinus tachycardia Otherwise normal ECG
--- NOTE | 2018-02-14 08:58 | US ---
Date of service: 02/13/2018 PROCEDURE: Bilateral lower extremity venous duplex Doppler. HISTORY: B/L LE pain COMPARISON: None available. TECHNIQUE: Bilateral common femoral, superficial femoral, popliteal and posterior tibial veins were evaluated. Flow was assessed with color Doppler, compressibility, assessment of phasic flow and augmentation response. FINDINGS: COMMON FEMORAL VEIN: Right CFV: Unremarkable. Left CFV: Unremarkable. SUPERFICIAL FEMORAL VEIN: Right SFV: Unremarkable. Left SFV: Unremarkable. POPLITEAL VEIN: Right Popliteal: Unremarkable. Left Popliteal: Unremarkable. POSTERIOR TIBIAL VEIN: Right PTV: Unremarkable. Left PTV: Unremarkable. OTHER FINDINGS: None. IMPRESSION: No evidence of deep venous thrombosis.
--- NOTE | 2018-02-14 09:25 | CT ---
Date of service: 02/13/2018 PROCEDURE: CT HEAD WITHOUT CONTRAST. HISTORY: near syncope COMPARISON: None available. TECHNIQUE: Axial computed tomography images were obtained through the head/brain without intravenous contrast. Radiation dose: Total exam DLP = 840.67 mGy-cm. This CT exam was performed using one or more of the following dose reduction techniques: Automated exposure control, adjustment of the mA and/or kV according to patient size, and/or use of iterative reconstruction technique. FINDINGS: HEMORRHAGE: No intracranial hemorrhage. BRAIN: Rodriguez-white matter differentiation is preserved. There is no mass, mass effect or abnormal extra-axial fluid collection. There is no territorial infarction. The midline sagittal structures are normal. VENTRICLES: The ventricles are normal in size, shape and configuration. CALVARIUM: There is no calvarial fracture or extracranial soft tissue swelling. PARANASAL SINUSES: Predominantly clear. MASTOID AIR CELLS: Predominantly clear. OTHER FINDINGS: None. IMPRESSION: No acute intracranial abnormality. A preliminary report was provided by [facility].
== END 2018-02-13 23:50 | disposition home or self-care (01) ==
LOC: H.ER 18:43
DX: F41.9 Anxiety disorder, unspecified (principal); R00.2 Palpitations; G40.909 Epilepsy, unspecified, not intractable, without status epilepticus; J45.909 Unspecified asthma, uncomplicated; Z87.891 Personal history of nicotine dependence; Z88.0 Allergy status to penicillin
CPT/HCPCS: 70450; 80053; 84484; 85025; 93005; 93970; 96374; 99284; G0480; J1885

== ENCOUNTER 2018-02-25 23:03 | Emergency (ER) | payer BC ==
[2018-02-25 23:04] VITALS: BMI 45.8
[2018-02-25 23:13] VITALS: RESP 18; TEMP 98.9
[2018-02-25 23:46] VITALS: BP 116/79; PULSE 91; O2SAT 96
--- NOTE | 2018-02-26 | ED PDOC ---
Upper Extremity Pain/Injury Time Seen by Provider: 02/25/18 23:19 Chief Complaint (Nursing): Finger,Hand,&Wrist History Per: Patient History/Exam Limitations: no limitations Onset/Duration Of Symptoms: Days Additional Complaint(s): 22 year old with obesity and HLD presenting with hand pain and L sided rib pain after trying to lift a table on 02/23, states the table fell on his R hand and he hit the L side of his chest on the bannister, since then has had difficulty taking a deep breath secondary to pain on that side. No chest pain. Past Medical History Reviewed: Historical Data, Nursing Documentation, Vital Signs Vital Signs: Last Vital Signs Temp 98.9 F 02/25/18 23:07 Pulse 91 H 02/25/18 23:46 Resp 18 02/25/18 23:46 BP 116/79 02/25/18 23:46 Pulse Ox 96 02/25/18 23:46 - Medical History PMH: Asthma, Hypercholesterolemia, Seizures (no meds) - Family History Family History: States: Unknown Family Hx - Immunization History Hx Tetanus Toxoid Vaccination: No Hx Influenza Vaccination: No Hx Pneumococcal Vaccination: No - Home Medications Home Medications: Ambulatory Orders Medication Instructions Recorded Albuterol HFA [Ventolin HFA 90 200 puff IH PRN PRN 06/09/13 mcg/actuation (8 g)] Cyclobenzaprine [Cyclobenzaprine 10 mg PO Q8H PRN #12 tab 11/07/16 HCl] Famotidine [Pepcid] 20 mg PO BID #28 tab 11/07/16 Albuterol HFA [Ventolin HFA 90 1 puff IH BID PRN #1 unit 01/05/17 mcg/actuation (8 g)] Azithromycin [Zithromax] 250 mg PO DAILY #6 tab 01/05/17 Loperamide [Loperamide HCl] 2 mg PO QID PRN #12 cap 01/27/17 Albuterol HFA [Ventolin HFA 90 2 puff IH Q4H PRN #1 inh 10/21/17 mcg/actuation (8 g)] Azithromycin [Zithromax] 250 mg PO DAILY #6 dose 10/21/17 Prednisone 50 mg PO DAILY #4 tablet 10/21/17 Ibuprofen [Motrin] 600 mg PO Q8 PRN #21 tab 12/31/17 Cyclobenzaprine [Cyclobenzaprine 10 mg PO BID #15 tab 02/26/18 HCl] Ibuprofen [Motrin Tab] 600 mg PO Q6 #30 tab 02/26/18 - Allergies Allergies/Adverse Reactions: Allergies Allergy/AdvReac Type Severity Reaction Status Date / Time Penicillins AdvReac RASH Verified 10/21/17 20:12 shellfish derived AdvReac SHORTNESS Verified 10/21/17 20:12 OF BREATH Review of Systems ROS Statement: Except As Marked, All Systems Reviewed And Found Negative Musculoskeletal: Positive for: Hand Pain Physical Exam - Reviewed Nursing Documentation Reviewed: Yes Vital Signs Reviewed: Yes - Physical Exam Appears: Positive for: Well, Non-toxic, No Acute Distress Head Exam: Positive for: ATRAUMATIC, NORMAL INSPECTION, NORMOCEPHALIC Skin: Positive for: Normal Color, Warm, DRY Eye Exam: Positive for: EOMI, Normal appearance, PERRL ENT: Positive for: Normal ENT Inspection Neck: Positive for: Normal, Painless ROM, Supple Cardiovascular/Chest: Positive for: Regular Rate, Rhythm, Other (L lateral lower rib tenderness, no step-off/crepitus) Respiratory: Positive for: Normal Breath Sounds. Negative for: Decreased Breath Sounds, Accessory Muscle Use Extremity: Positive for: Other (R hand with minor hematoma to base of 4th/5th fingers, FROM, sensation intact, good grasp) - ECG O2 Sat by Pulse Oximetry: 96 Pulse Ox Interpretation: Normal Medical Decision Making Medical Decision MakinPM PAtient presenting with hand/rib pain --Well appearing, presenting with hand/rib pain after injury --Will get xray's, provide NSAID/muscle relaxant 1AM --Hand and rib xrays negative --Encouraged ice, NSAIDs, and rest --Well appearing upon discharge Disposition - Clinical Impression Clinical Impression: Hand contusion, Rib contusion - Disposition Disposition: Routine/Home Disposition Time: 01:13 Condition: STABLE Prescriptions: Cyclobenzaprine [Cyclobenzaprine HCl] 10 mg PO BID #15 tab Ibuprofen [Motrin Tab] 600 mg PO Q6 #30 tab Instructions: Contusion (DC), Bruised Rib (DC) Forms: [employer] (Lao)
--- NOTE | 2018-02-26 14:56 | RAD ---
PROCEDURE: Right Hand Radiographs. HISTORY: trauma on 02/23 COMPARISON: None. FINDINGS: BONES: There is a fracture of the distal neck 4th metacarpal with slight palmar and minimal radial angulation of the distal fragment. JOINTS: Normal. No osteoarthritic changes. SOFT TISSUES: Dorsal soft tissue swelling most pronounced over the level of the metacarpals. OTHER FINDINGS: None. IMPRESSION: Fracture of the the distal 4th metacarpal with slight palmar and minimal radial angulation of the distal fragment. Dorsal soft tissue swelling.
--- NOTE | 2018-02-26 15:02 | RAD ---
Date of service: 02/25/2018 PROCEDURE: Radiographs of the Chest and Left Ribs. HISTORY: trauma on 02/23 COMPARISON: Comparison made with chest radiograph 10/21/2017.. TECHNIQUE: Frontal radiograph of the chest and multiple oblique radiographs of the left ribs were obtained. FINDINGS: LEFT RIBS: No fracture or focal lesion visualized. LUNGS: Clear. PLEURA: No pneumothorax or pleural fluid. CARDIOVASCULAR: Normal cardiac size. No pulmonary vascular congestion. No aortic atherosclerotic calcification present OTHER FINDINGS: None. IMPRESSION: Unremarkable radiographs of the chest and left ribs. No left rib fracture..
== END 2018-02-26 01:20 | disposition home or self-care (01) ==
LOC: H.ER 23:03
DX: S60.221A Contusion of right hand, initial encounter (principal); S20.219A Contusion of unspecified front wall of thorax, initial encounter; J45.909 Unspecified asthma, uncomplicated; Z88.0 Allergy status to penicillin; W20.8XXA Other cause of strike by thrown, projected or falling object, initial encounter

== ENCOUNTER 2018-07-11 16:33 | Emergency (ER) | payer BC ==
[2018-07-11 16:34] VITALS: BMI 45.8
[2018-07-11 16:43] VITALS: O2SAT 98
[2018-07-11] MEDS ORDERED: Sodium Chloride 0.9% 1,000 ML IV STA (16:55)
[2018-07-11] MEDS ORDERED: Aspirin 325 mg EC Tablets PO ONE (17:03)
[2018-07-11 17:17] LABS: BASO % 0.4 % (0.0-2.0); EOS # 0.1 K/uL (0.0-0.7); EOS % 0.9 % (0.0-4.0); HEMOGLOBIN 14.3 g/dL (12.0-18.0); LYMPH # 2.3 K/uL (1.0-4.3); LYMPH % 25.7 % (20.0-40.0); MEAN CELL VOLUME 87.7 fl (80.0-94.0); MEAN CORPUSCULAR HEMOGLOBIN 30.3 pg (27.0-31.0); MEAN CORPUSCULAR HGB CONC 34.6 g/dL (33.0-37.0); MEAN PLATELET VOLUME 8.9 fl (7.2-11.7); MONO # 0.4 K/uL (0.0-0.8); MONO % 4.9 % (0.0-10.0); NEUT # 6.2 K/uL (1.8-7.0); NEUT % 68.1 % (50.0-75.0); NRBC % 0.2 % (0.0-0.0); RBC 4.73 Mil/uL (4.40-5.90); RED CELL DISTRIBUTION WIDTH 12.9 % (11.5-14.5); WHITE BLOOD COUNT 9.1 K/uL (4.8-10.8)
[2018-07-11 17:32] LABS: BLOOD UREA NITROGEN 13 mg/dl (9-20); CALCIUM 9.6 mg/dL (8.4-10.2); GFR NON-AFRICAN AMERICAN > 60
--- NOTE | 2018-07-11 17:42 | RAD ---
HISTORY: possible admission COMPARISON: Left ribs and chest x-ray performed 02/25/18 TECHNIQUE: Chest, one view. FINDINGS: LUNGS: No focal consolidation. Please note that chest x-ray has limited sensitivity for the detection of pulmonary masses. PLEURA: No significant pleural effusion identified. No definite pneumothorax . CARDIOVASCULAR: Heart size appears within normal limits. No significant atherosclerotic calcification present. OSSEOUS STRUCTURES: No acute osseous abnormality identified. VISUALIZED UPPER ABDOMEN: Unremarkable. OTHER FINDINGS: None. IMPRESSION: No focal consolidation identified.
--- NOTE | 2018-07-11 19:33 | ED PDOC ---
HPI: Chest Pain Time Seen by Provider: 07/11/18 16:55 Chief Complaint (Nursing): Chest Pain Chief Complaint (Provider): Chest Pain History Per: Patient History/Exam Limitations: no limitations Onset/Duration Of Symptoms: Hrs (@1pm ) Additional Complaint(s): Patient is a 22 year old male with a past medical history of epilepsy, fatty liver, and HLD who presents to the emergency department complaining about new onset palpitations and chest pain that started around 1pm today. Patient states that he was on a train coming back form [place] when he started to feel palpitations. He states that he tried to stand and started to have 5/10 chest pain. He went home to lay down but was fearful that he would not wake up, so he decided to come to ED. In the last x24 hours, patient has had the equivalent of 1 pot of coffee and is not typically a coffee or caffeine drinker. Patient has not been on epilepsy medication since he was 15 as neurologist stopped his medications. PDM: Jake Sun Past Medical History Reviewed: Historical Data, Nursing Documentation, Vital Signs Vital Signs: Last Vital Signs Temp 98.2 F 07/11/18 16:40 Pulse 114 H 07/11/18 16:51 Resp 22 07/11/18 16:40 BP 134/82 07/11/18 16:51 Pulse Ox 98 07/11/18 16:40 - Medical History PMH: Asthma, Hypercholesterolemia, Seizures (no meds) - Surgical History Surgical History: No Surg Hx - Family History Family History: States: Unknown Family Hx - Immunization History Hx Tetanus Toxoid Vaccination: No Hx Influenza Vaccination: No Hx Pneumococcal Vaccination: No - Home Medications Home Medications: Ambulatory Orders Medication Instructions Recorded Albuterol HFA [Ventolin HFA 90 200 puff IH PRN PRN 06/09/13 mcg/actuation (8 g)] Cyclobenzaprine [Cyclobenzaprine 10 mg PO Q8H PRN #12 tab 11/07/16 HCl] Famotidine [Pepcid] 20 mg PO BID #28 tab 11/07/16 Albuterol HFA [Ventolin HFA 90 1 puff IH BID PRN #1 unit 01/05/17 mcg/actuation (8 g)] Azithromycin [Zithromax] 250 mg PO DAILY #6 tab 01/05/17 Loperamide [Loperamide HCl] 2 mg PO QID PRN #12 cap 01/27/17 Albuterol HFA [Ventolin HFA 90 2 puff IH Q4H PRN #1 inh 10/21/17 mcg/actuation (8 g)] Azithromycin [Zithromax] 250 mg PO DAILY #6 dose 10/21/17 Prednisone 50 mg PO DAILY #4 tablet 10/21/17 Ibuprofen [Motrin] 600 mg PO Q8 PRN #21 tab 12/31/17 Cyclobenzaprine [Cyclobenzaprine 10 mg PO BID #15 tab 02/26/18 HCl] Ibuprofen [Motrin Tab] 600 mg PO Q6 #30 tab 02/26/18 - Allergies Allergies/Adverse Reactions: Allergies Allergy/AdvReac Type Severity Reaction Status Date / Time Penicillins AdvReac RASH Verified 10/21/17 20:12 shellfish derived AdvReac SHORTNESS Verified 10/21/17 20:12 OF BREATH Review of Systems ROS Statement: Except As Marked, All Systems Reviewed And Found Negative Cardiovascular: Positive for: Chest Pain, Palpitations Physical Exam - Reviewed Nursing Documentation Reviewed: Yes Vital Signs Reviewed: Yes - Physical Exam Appears: Positive for: Non-toxic, No Acute Distress (overweight) Head Exam: Positive for: ATRAUMATIC, NORMOCEPHALIC Skin: Positive for: Normal Color, Warm, Dry Eye Exam: Positive for: Normal appearance, EOMI, PERRL ENT: Positive for: Normal ENT Inspection Neck: Positive for: Normal, Painless ROM, Supple Cardiovascular/Chest: Positive for: Regular Rate, Rhythm. Negative for: Murmur Respiratory: Positive for: Normal Breath Sounds. Negative for: Respiratory Distress Gastrointestinal/Abdominal: Positive for: Normal Exam, Soft. Negative for: Tenderness Back: Positive for: Normal Inspection. Negative for: L CVA Tenderness, R CVA Tenderness, Vertebral Tenderness Extremity: Positive for: Normal ROM. Negative for: Pedal Edema, Deformity Neurological/Psych: Positive for: Alert, Oriented - Laboratory Results Result Diagrams: 07/11/18 17:02 07/11/18 17:02 Lab Results: Troponin I < 0.0120 ng/mL (0.00-0.120) 07/11/18 17:02 - ECG O2 Sat by Pulse Oximetry: 98 (RA) Pulse Ox Interpretation: Normal Medical Decision Making Medical Decision Making: Time: 1645 A/P: Work up for chest pain and palpitations, possibly due to caffeine over d ose. Rule out cardiac pathology. Order labs, troponin, aspirin, IV fluids, and reassess patient. --EKG --Aspirin 325 mg PO --Sodium Chloride 1,000 ml --BMP --Troponin I --CBC with differential --BMP Time: 1738 FINDINGS: LUNGS: No focal consolidation. Please note that chest x-ray has limited sensitivity for the detection of pulmonary masses. PLEURA: No significant pleural effusion identified. No definite pneumothorax . CARDIOVASCULAR: Heart size appears within normal limits. No significant atherosclerotic calcification present. OSSEOUS STRUCTURES: No acute osseous abnormality identified. VISUALIZED UPPER ABDOMEN: Unremarkable. OTHER FINDINGS: None. IMPRESSION: No focal consolidation identified. Time: 2002 --Patient's labs are WNL. --Vitals have improved after IV fluids. --Pain has improved and instructed to follow up with PMD. --Instructed to avoid caffeine and return parameters were discussed. Scribe Attestation: Documented by Shahzad Moss, acting as a scribe Pastora Sanz MD. Provider Scribe Attestation: All medical record entries made by the Scribe were at my direction and personally dictated by me. I have reviewed the chart and agree that the record accurately reflects my personal performance of the history, physical exam, medical decision making, and the department course for this patient. I have also personally directed, reviewed, and agree with the discharge instructions and disposition. Disposition - Clinical Impression Clinical Impression: Heart palpitations - Disposition Disposition Time: 20:00 Condition: IMPROVED Additional Instructions: Follow up with primary medical doctor in 3 to 5 days. Return to the emergency department if symptoms worsen or if new symptoms develop. Avoid caffeine and only drink in moderation. Instructions: Palpitations (DC) Forms: [facility] ([place]ian), [facility] ED School/Work Excuse Print Language: FAROESE
[2018-07-11 19:45] VITALS: BP 123/71; PULSE 94; RESP 20; TEMP 98.5
--- NOTE | 2018-07-12 10:03 | CARD ---
APPROVED REPORT Date of service: 07/11/2018 EKG Measurement Heart [id number] <Conclusion> Normal sinus rhythm Normal ECG
--- NOTE | 2018-07-12 10:05 | CARD ---
APPROVED REPORT Date of service: 07/11/2018 EKG Measurement Heart [id number] <Conclusion> Sinus tachycardia Otherwise normal ECG
== END 2018-07-11 20:04 | disposition home or self-care (01) ==
LOC: H.ER 16:33
DX: R00.2 Palpitations (principal); G40.909 Epilepsy, unspecified, not intractable, without status epilepticus; J45.909 Unspecified asthma, uncomplicated; Z88.0 Allergy status to penicillin
CPT/HCPCS: 71045; 80048; 84484; 85025; 93005; 96360; 99284; J7030

== ENCOUNTER 2018-07-18 12:32 | Emergency (ER) | payer BC ==
[2018-07-18 12:32] VITALS: BMI 45.8
[2018-07-18 13:01] VITALS: O2SAT 96
[2018-07-18] MEDS ORDERED: Albuterol 0.083% Inhal Sol (2.5 mg/3 mL) UD INH STA (13:23)
[2018-07-18] MEDS ORDERED: Albuterol 0.083% Inhal Sol (2.5 mg/3 mL) UD ONE (13:29)
--- NOTE | 2018-07-18 13:33 | ED PDOC ---
HPI: Asthma Time Seen by Provider: 07/18/18 13:16 Chief Complaint (Nursing): Cough, Cold, Congestion Chief Complaint (Provider): Asthma Exacerbation History Per: Patient History/Exam Limitations: no limitations Onset/Duration Of Symptoms: Days (x6) Current Symptoms Are (Timing): Still Present Additional Complaint(s): 22 year old male with pmhx of asthma presents to the ED for evaluation of chest tightness, chest congestion (worse at night), cough, and sore throat for the past six days only minimally relieved with his at home inhaler. Patient notes that two days ago, he also developed a subjective fever. Additionally, he reports that his girl friend and daughter are also sick at home. Otherwise, denies nausea, vomiting, and body aches. PMD: Corinne Joseph Past Medical History Reviewed: Historical Data, Nursing Documentation, Vital Signs Vital Signs: Last Vital Signs Temp 99.8 F H 07/18/18 12:58 Pulse 102 H 07/18/18 12:58 Resp 16 07/18/18 12:58 BP 126/85 07/18/18 12:58 Pulse Ox 96 07/18/18 12:58 - Medical History PMH: Asthma, Hypercholesterolemia, Seizures (no meds) - Surgical History Surgical History: No Surg Hx - Family History Family History: States: Unknown Family Hx - Living Arrangements Living Arrangements: With Family (girl friend and daughter) - Immunization History Hx Tetanus Toxoid Vaccination: No Hx Influenza Vaccination: No Hx Pneumococcal Vaccination: No - Home Medications Home Medications: Ambulatory Orders Medication Instructions Recorded Albuterol HFA [Ventolin HFA 90 200 puff IH PRN PRN 06/09/13 mcg/actuation (8 g)] Cyclobenzaprine [Cyclobenzaprine 10 mg PO Q8H PRN #12 tab 11/07/16 HCl] Famotidine [Pepcid] 20 mg PO BID #28 tab 11/07/16 Azithromycin [Zithromax] 250 mg PO DAILY #6 tab 01/05/17 Loperamide [Loperamide HCl] 2 mg PO QID PRN #12 cap 01/27/17 Albuterol HFA [Ventolin HFA 90 2 puff IH Q4H PRN #1 inh 10/21/17 mcg/actuation (8 g)] Azithromycin [Zithromax] 250 mg PO DAILY #6 dose 10/21/17 Prednisone 50 mg PO DAILY #4 tablet 10/21/17 Ibuprofen [Motrin] 600 mg PO Q8 PRN #21 tab 12/31/17 Cyclobenzaprine [Cyclobenzaprine 10 mg PO BID #15 tab 02/26/18 HCl] Ibuprofen [Motrin Tab] 600 mg PO Q6 #30 tab 02/26/18 Albuterol 0.083% [Albuterol 0.083% 2.5 mg IH Q4H PRN #30 neb 07/18/18 Inhal Radha (2.5 mg/3 ml) UD] Albuterol HFA [Ventolin HFA 90 1 puff IH BID PRN #1 unit 07/18/18 mcg/actuation (8 g)] Guaifenesin/Pseudoephedrne HCl 1 each PO Q12H PRN #30 tab.er.12h 07/18/18 [Mucinex D ER 1,200-120 mg Tab] Nebulizer [Aeroeclipse II] 1 each MC Q3H PRN #1 each 07/18/18 predniSONE [predniSONE Tab] 60 mg PO DAILY #12 tab 07/18/18 - Allergies Allergies/Adverse Reactions: Allergies Allergy/AdvReac Type Severity Reaction Status Date / Time Penicillins AdvReac RASH Verified 07/18/18 12:58 shellfish derived AdvReac SHORTNESS Verified 07/18/18 12:58 OF BREATH Review of Systems ROS Statement: Except As Marked, All Systems Reviewed And Found Negative Constitutional: Positive for: Fever (subjective). Negative for: Other (body aches) ENT: Positive for: Throat Pain Cardiovascular: Positive for: Other (chest tightness) Respiratory: Positive for: Cough, Other (chest congestion) Gastrointestinal: Negative for: Nausea, Vomiting Physical Exam - Reviewed Nursing Documentation Reviewed: Yes Vital Signs Reviewed: Yes - Physical Exam Appears: Positive for: No Acute Distress Head Exam: Positive for: ATRAUMATIC, NORMOCEPHALIC Skin: Positive for: Normal Color, Warm. Negative for: Rash Eye Exam: Positive for: Normal appearance ENT: Positive for: Normal ENT Inspection, TM Is/Are (unremarkable bilaterally). Negative for: Sinus Pain/Drainage, Nasal Congestion, Pharyngeal Erythema, Tonsillar Exudate, Tonsillar Swelling Neck: Positive for: Normal, Painless ROM, Supple Cardiovascular/Chest: Positive for: Regular Rate, Rhythm Respiratory: Positive for: Wheezing (bilateral expiratory), Other (coarse voice noted; congestive cough with deep inspirations noted) Gastrointestinal/Abdominal: Positive for: Normal Exam, Soft. Negative for: Tenderness Back: Positive for: Normal Inspection Extremity: Positive for: Normal ROM (all extremities) Neurological/Psych: Positive for: Awake, Alert, Oriented (x3) - ECG O2 Sat by Pulse Oximetry: 96 (RA) Pulse Ox Interpretation: Normal Nebulizer Treatments/Peak Flow - Pre/Post Peak Flow Pre Treatment Peak Flow: 380 Post treatment Peak Flow: 500 - Steroid Treatment Steroid: Oral - Clinical Response Clinical Response: Improved Medical Decision Making Medical Decision Making: Time: 1323 Initial Impression: asthma exacerbation Initial Plan: --CXR --Albuterol 2.5mg INH x3 doses --Prednisone 60mg PO --Tylenol 650mg PO --Reevaluation 1430 Patient reports feeling improved after treatment. Upon lung reeval, patient still has slight left sided expiratory wheeze, but is stable for discharge with scripts for nebulizer machine, albuterol, mucinex, and prednisone for four days. CXR reviewed by me as NAD and no acute infiltrate. Patient additionally educated on non-pharmacological therapies for laryngitis. He verbalized understanding and agreement with plan. Given return to ED precautions. Scribe Attestation: Documented by Mali Dennis, acting as a scribe for Wendy Stein APN. Provider Scribe Attestation: All medical record entries made by the Scribe were at my direction and personally dictated by me. I have reviewed the chart and agree that the record accurately reflects my personal performance of the history, physical exam, medical decision making, and the department course for this patient. I have also personally directed, reviewed, and agree with the discharge instructions and disposition. Disposition - Clinical Impression Clinical Impression: Acute bronchitis, Laryngitis - Patient ED Disposition Is Patient to be Admitted: No Counseled Patient/Family Regarding: Diagnosis, Rx Given - Disposition Disposition: Routine/Home Disposition Time: 14:30 Condition: IMPROVED Prescriptions: Albuterol 0.083% [Albuterol 0.083% Inhal Radha (2.5 mg/3 ml) UD] 2.5 mg IH Q4H PRN #30 neb PRN Reason: Cough Albuterol HFA [Ventolin HFA 90 mcg/actuation (8 g)] 1 puff IH BID PRN #1 unit PRN Reason: Wheezing Guaifenesin/Pseudoephedrne HCl [Mucinex D ER 1,200-120 mg Tab] 1 each PO Q12H PRN #30 tab.er.12h PRN Reason: Cough And Congestion Nebulizer [Aeroeclipse II] 1 each MC Q3H PRN #1 each PRN Reason: Cough predniSONE [predniSONE Tab] 60 mg PO DAILY #12 tab Instructions: Laryngitis, Acute Bronchitis Print Language: IRISH - POA Present On Arrival: None
--- NOTE | 2018-07-18 14:58 | RAD ---
Date of service: 07/18/2018 HISTORY: fever, chest congestion COMPARISON: 07/11/2018. TECHNIQUE: Chest PA and lateral views FINDINGS: LUNGS: No active pulmonary disease. PLEURA: No significant pleural effusion identified. No pneumothorax apparent. CARDIOVASCULAR: No aortic atherosclerotic calcification present. Normal cardiac size. No pulmonary vascular congestion. OSSEOUS STRUCTURES: No significant abnormalities. VISUALIZED UPPER ABDOMEN: Normal. OTHER FINDINGS: None. IMPRESSION: No active disease. No significant interval change compared to the prior examination(s).
[2018-07-18 15:04] VITALS: BP 135/65; PULSE 108; RESP 20; TEMP 99.1
== END 2018-07-18 15:29 | disposition home or self-care (01) ==
LOC: H.ER 12:32
DX: J45.901 Unspecified asthma with (acute) exacerbation (principal); J20.9 Acute bronchitis, unspecified; J04.0 Acute laryngitis; Z79.899 Other long term (current) drug therapy; Z88.0 Allergy status to penicillin